=== PATIENT | female | born 2000 | race Two or more races ===

== ENCOUNTER 2018-06-26 21:00 | Emergency (ER) | payer MEDICAID ==
[2018-06-26] MEDS ORDERED: NS 1,000 ML IV ONE (21:28)
--- NOTE | 2018-06-26 22:27 | EDPHY ---
HPI/HX/ROS/PE/MDM Narrative: CLINICAL IMPRESSION: Abdominal cramping in ASSESSMENT/PLAN: This is a 17-year-old female, currently 10 weeks with an ultrasound confirmed live IUP, who presents to the emergency department with intermittent generalized abdominal cramping for the last 2 weeks. Patient had this several weeks ago and was diagnosed with dehydration. She has been trying to drink more. No associated fever, chills, vomiting, vaginal bleeding or abnormal vaginal discharge, dysuria, flank pain, chest pain no shortness of breath. Labs are reassuring with no evidence of acute renal insufficiency, electrolyte imbalance, and urine does not appear suggestive of infection or bacteriuria. Patient's abdomen is soft with no focal peritoneal findings. No reproducible pelvic pain, formal exam deferred as patient would prefer to have this with her OBGYN. I do not feel the patient requires an emergent pelvic /OB ultrasound. She is established with OBGYN and [place] and I encouraged her to follow up tomorrow for recheck. I gave her a work note for tomorrow and encouraged her to stay home and rest. She received a L of IV fluids with improvement in her cramping. Warning signs for return to ED sooner outlined and discharge DIFFERENTIAL DX: Abdominal pain includes but not limited to urinary tract infection, pyelonephritis, infection, ectopic , salpingitis, TOA, ovarian torsion, ovarian cyst, endometriosis, uterine fibroids, acute appendicitis, acute diverticulitis, small-bowel obstruction, constipation ED PROCEDURES: See lab results below ED COURSE: 10:25 p.m.: Patient reassessed, lab results reviewed. She states cramping is a little better. She received a L of fluids. Urine pending. No clinical indication of severe dehydration, acute renal failure, or electrolyte imbalance. I do not feel this patient requires an emergent pelvic ultrasound at this point. CHIEF COMPLAINT: Abdominal cramping in HPI: 17-year-old female presents to the emergency department 10 weeks with a confirmed IUP with vague complaints of abdominal cramping. She has no reports of vaginal bleeding, abnormal vaginal discharge, pelvic pain, dysuria, flank pain, fever or chills. Her OBGYN is Naty Cedeno in [place]. She had a normal ultrasound on the of last month confirming a live IUP. She has an appointment later this month for full Pap smear and pelvic exam. She denies Risk of STDs. She had cramping similar to this last month and received IV fluids with improvement in her symptoms. It was suspected this was secondary to dehydration. She works at a gas station and stands all day and reports this makes her symptoms worse. There is no worsening pain with eating or drinking and no reported right upper quadrant pain. She has been using Zofran intermittently for morning sickness. No reported shortness of breath, chest pain, back pain. She had no complications with her 1st and has a healthy 2-year-old PAST MEDICAL HISTORY: Mild intermittent asthma Pertinent Past Surgical History: None reported Family History: Noncontributory Social History: 10 weeks , nonsmoker ROS: A full 10 point review of systems was negative except for those mentioned in HPI. PHYSICAL EXAM: General Appearance: Alert, oriented, appropriate, cooperative, NAD, well hydrated, non-toxic appearing, VSS, no hypoxia. HEENT: Oropharynx clear is no erythema or exudates, no tonsillar hypertrophy or asymmetry. Dentition without abnormality. Neck: Supple, nontender, no lymphadenopathy, no midline pain, FROM, no meningismus. Respiratory: There are no retractions, lungs are clear to auscultation. Cardiac: Regular rate and rhythm, no murmurs or gallops. Gastrointestinal: Abdomen is soft, nontender, bowel sounds normal, no masses/ hernia, no rigidity, guarding or focal peritoneal findings. exam deferred. No reports of vaginal bleeding or abnormal vaginal discharge. Skin: Warm, dry, no rashes, no nodules on palpation. MEDICAL DECISION MAKING: Patient was seen independently. Secondary supervising physician at time of evaluation was Dr. Tsang. Diagnosis: Abdominal cramping in . New, requires workup Summary: See Assessment and Plan for summary of ED visit Clinical lab tests: ordered / reviewed. Patient Progress: Stable. - Data Points Laboratory Results: Laboratory Results 06/26/18 21:43 06/26/18 06/26/18 22:10 21:43 Sodium 138 mEq/L mEq/L (135-145) Potassium 3.9 mEq/L mEq/L (3.5-5.2) Chloride 107 mEq/L mEq/L (97-110) Carbon Dioxide 20 mEq/l L mEq/l (22-31) Anion Gap 11 mEq/L mEq/L (6-14) BUN 9 mg/dL mg/dL (7-23) Creatinine 0.6 mg/dL mg/dL (0.6-1.0) Estimated GFR > 60 Glucose 98 mg/dL mg/dL (70-100) Calcium 9.3 mg/dL mg/dL (8.5-10.4) Urine RBC 1-3 /hpf /hpf (0-3) Urine WBC 1-3 /hpf /hpf (0-3) Ur Epithelial Cells TRACE /lpf /lpf (NONE-1+) Urine Mucus TRACE /lpf /lpf (NONE-1+) Medications Given: Discontinued Medications Sodium Chloride (Ns) 1,000 mls @ 0 mls/hr IV EDNOW ONE; Wide Open PRN Reason: Protocol Stop: 06/26/18 21:29 Last Admin: 06/26/18 21:41 Dose: 1,000 mls General Time Seen by Provider: 06/26/18 21:12 Initial Vital Signs: Initial Vital Signs Temperature (C) 36.6 C 06/26/18 21:02 Heart Rate 76 06/26/18 21:02 Respiratory Rate 18 06/26/18 21:02 Blood Pressure 145/76 H 06/26/18 21:02 O2 Sat (%) 97 06/26/18 21:02 O2 Delivery Mode Room Air Allergies/Adverse Reactions: aspirin Allergy (Verified 11/16/15 15:59) NSAIDS (Non-Steroidal Anti-Inflamma Allergy (Verified 06/18/14 18:02) Home Medications: Medication Instructions Recorded Albuterol Hfa Anes Only [Proair 6.7 gm IH 06/18/14 Hfa Icu (*)] Albuterol [Proventil Inhaler HFA 1 - 2 puffs IH Q4 #1 mdi 08/28/15 (*)] Advair 100/50 (RX) 11/16/15 11/16/15 Montelukast Sodium [Singulair 10 10 mg PO DAILY@1800 06/18/16 mg (*)] Departure - Departure Disposition: Home, Routine, Self-Care Clinical Impression: Abdominal cramping affecting Condition: Good Instructions: Abdominal Pain in (ED) Additional Instructions: DISCHARGE INSTRUCTIONS FROM YOUR DOCTOR Thank you for visiting our emergency department today. Please keep in mind that discharge from the emergency department does not mean that there is nothing wrong - it simply means that we have not identified an emergency condition that requires further evaluation or treatment in the hospital. You should always plan to follow up with primary care for re-evaluation of your condition in the next 2-3 days. If you have been referred to a specialist, please call as soon as possible (today or tomorrow) to schedule your follow up appointment at the appropriate time. Your lab work is reassuring tonight. You do not have signs of severe dehydration or electrolyte imbalance. Your urine does not appear infected. It is very important that you call your primary OBGYN tomorrow, inform them that you were in the ER and that you need to follow-up appointment. A work note was given to excuse from work tomorrow. Please consider using compression stockings at work. Stay well-hydrated and aim to drink 80 than 90 oz of water a day. Continue vitamin and Zofran if needed. Return to emergency department immediately for vaginal bleeding, severe pelvic cramping, fever or chills, painful urination or inability to urinate, inability to have a bowel movement, abdominal distension, or any other concerns. People present with illnesses and injuries in different ways, and it is always possible that we have missed something. You may always return for re-evaluation if symptoms worsen or if they are not improving or if you develop new/different symptoms. Again, thank you for choosing our emergency department. We hope that you feel better. Referrals: NATANAEL BRONSON [Primary Care Provider] - As per Instructions Naty Cedeno MD [Non Staff Provider ()] - 1 day without fail
[2018-06-26 22:54] VITALS: BP 110/67
== END 2018-06-26 23:00 | disposition home or self-care (01) ==
DX: O99.89 Other specified diseases and conditions complicating pregnancy, childbirth and the puerperium (principal); R10.9 Unspecified abdominal pain; E86.9 Volume depletion, unspecified; Z3A.10 10 weeks gestation of pregnancy

== ENCOUNTER 2018-11-10 01:25 | Observation (INO) | payer MEDICAID ==
--- NOTE | 2018-11-10 02:08 | OBPROG ---
Labor Progress Note Assessment/Plan: Assessment: Plan: ICD10 Worksheet Patient Problems: Problems Problem Status Onset Labor established Acute
== END 2018-11-10 04:59 | disposition home or self-care (01) ==
LOC: FLD 01:25
PROVIDERS: ADMIT Obstetrics & Gynecology; ATTEND Obstetrics & Gynecology
DX: Z03.79 Encounter for other suspected maternal and fetal conditions ruled out (principal); Z3A.31 31 weeks gestation of pregnancy
CPT/HCPCS: G0378 ×2

== ENCOUNTER 2018-12-17 14:10 | Observation (INO) | payer MEDICAID ==
--- NOTE | 2018-12-17 14:22 | PDGENHP ---
History and Physical History and Physical: Care: [facility] HPI: Patient is a 18 yo with IUP@37-0 weeks that presents to L&[facility] She states she did not hit her abdomen, but is very sore. She denies any contractions, LOF, VB. She reports +FM. She is currently receiving care at [facility], but wishes to deliver here at [facility]. EDC: 01/07/19 which is based on LMP and consistent with Ultrasound in first trimester (per pt) Her is complicated by: limited PNC, asthma, elevated BMI Review of Systems: Constitutional: Denies any fever, chills, or fatigue HEENT: denies any visual changes, difficulty swallowing, hearing loss Cardiovascular: Denies any chest pain, palpitations, leg swelling Respiratory: denies any cough, wheezing, or shortness of breathe GI: Denies any nausea, vomiting, diarrhea, constipation : denies any dysuria, urgency, frequency, vaginal bleeding Musculoskeletal: denies any muscle or bone pain Skin: denies any rashes Neuro: denies any headache, seizures, lightheadedness, dizziness, or loss of consciousness Psychiatric: denies any depression, anxiety, or SI/HI thoughts HISTORY: Previous OB history: 2016 Past medical history: asthma, elevated BMI Past surgical history: none Social: Denies any alcohol, tobacco, or drug use. She is single and SAHM. Family history: Not relevant Medications: PNV Allergies (list reaction): NKDA LABS: Rh: O+ ABS: Neg Rubella: Immune HbsAg: NR HIV: NR VDRL: NR 1hr: not done GC: unknown Chlamydia: unknown Pap: n/a GBS: collected today PHYSICAL EXAM: Constitutional: WN, A&Ox3 HEENT: normocephalic atraumatic, supple Skin: Warm, dry, intact Heart: RRR, no murmur Chest: CTA-B Abdomen: Soft, nontender, gravid SVE: ft/th/high Extremities: no edema, negative homans sign Neuro: grossly normal Psych: normal affect assessment: FHT baseline 125 +accels, no decels, moderate variability Contractions: toco none Assessment: * 18 yo with IUP@ 37-0wks * s/p fall, no abdominal trauma * cat 1 FHR Tracing * no evidence of labor or Srom Plan: * d/c home at this time * GBS collected * need records (anatomy US and GTT) * anticipate PERCY to [facility], this week * [facility] and labor prec discussed * will call [facility] to sched NOB/PERCY visit for this week Today's visit was approximately 30 min, of which >50% of visit 20 min, was spent face to face with pt on direct counseling/coordination of care.
== END 2018-12-17 16:00 | disposition home or self-care (01) ==
LOC: FLD 14:10
PROVIDERS: ADMIT Advanced Practice Midwife; ATTEND Advanced Practice Midwife
DX: Z03.79 Encounter for other suspected maternal and fetal conditions ruled out (principal)

== ENCOUNTER 2018-12-27 02:35 | Observation (INO) | payer MEDICAID | END 2018-12-27 03:15 | disposition home or self-care (01) | LOC: FLD 02:35 ==

== ENCOUNTER 2019-01-10 07:59 | Inpatient (IN) | payer MEDICAID | END 2019-01-12 12:35 | disposition home or self-care (01) | LOC: FLD 07:59 → FOB 22:30 ==